=== PATIENT | female | born 1995 | race Caucasian/White ===

== ENCOUNTER 2018-11-22 11:10 | Emergency (ER) | payer BC ==
[2018-11-22 11:29] VITALS: BP 143/97
[2018-11-22] MEDS ORDERED: Sodium Chloride 0.9% 10 ML Syringe FLUSH PRN (11:34)
[2018-11-22] MEDS ORDERED: Ondansetron 4 MG Tab.DIS PO ONE (11:35)
[2018-11-22] MEDS ORDERED: Benztropine 1 MG Tab PO ONE (11:35)
[2018-11-22] MEDS ORDERED: Haloperidol Lactate 5 MG/ML SDV IM ONE (11:35)
[2018-11-22] MEDS ORDERED: Ketorolac 30 MG/ML SDV IVPUSH ONE (11:43)
--- NOTE | 2018-11-22 11:43 | EDM.PDOC ---
ED HPI GENERAL MEDICAL PROBLEM - General Chief Complaint: Headache Stated Complaint: SENT FROM [facility] Time Seen by Provider: 11/22/18 11:16 Source of Information: Reports: Patient History Limitations: Reports: No Limitations - History of Present Illness INITIAL COMMENTS - FREE TEXT/NARRATIVE: 23 y/o female presents to ER with cc headache that started yesterday morning. She reports she woke up with headache yesterday, she felt like she had a fever but didn't take it because she didn't have a thermometer. She states she took 3 aspirin but it didn't ease it. She reports she is have weakness, feeling dizzy, nausea and vomiting with it. She reports she has a history of what she is calling migraines although she has not be diagnosis with them. She reports last night her headache was the worse she has every had. She is not sure if it is due to all the vomiting she had. She reports having intermittent pain in her right eye that has since subsided. She reports this morning when she woke up she became weak and dizzy. She reports she has not eating in 24 hours. She denies any neck stiffness or pain. She is in no apparent distress at this time. She was seen at [facility] and set here for further evaluation and treatment. She currently rates her headache a 10/28. Onset Date: 11/21/18 Onset Time: 09:00 Duration: Getting Worse, Intermittent Location: Reports: Head Quality: Reports: Ache Severity: Mild Improves with: Reports: None Worsens with: Reports: None Associated Symptoms: Reports: Fever/Chills (reports fever but didnt' take anyting.), Nausea/Vomiting, Syncope, Weakness. Denies: Cough, Shortness of Breath Headache Pain Score (Numeric/FACES): 4 - Related Data Allergies Allergy/AdvReac Type Severity Reaction Status Date / Time No Known Allergies Allergy Verified 11/22/18 11:19 Home Meds: Home Meds Acetaminophen/Butalbital/Caff [Fioricet 325-50-40 MG] 1 each PO Q6HR PRN 4 Days #16 tab 11/22/18 [Rx] Ondansetron [Zofran ODT] 4 mg PO Q6H PRN 4 Days #16 tab.dis 11/22/18 [Rx] Past Medical History Neurological History: Reports: Migraines Psychiatric History: Reports: Anxiety, Other (See Below) - Past Surgical History HEENT Surgical History: Reports: Other (See Below) Other HEENT Surgeries/Procedures: wisdom teeth Social & Family History - Tobacco Use Smoking Status *Q: Never Smoker - Caffeine Use Caffeine Use: Reports: Soda - Recreational Drug Use Recreational Drug Use: No - Living Situation & Occupation Living situation: Reports: Single ED ROS GENERAL - Review of Systems Review Of Systems: See Below Constitutional: Reports: Fever. Denies: Chills HEENT: Reports: Glasses Respiratory: Reports: No Symptoms Cardiovascular: Reports: No Symptoms Endocrine: Reports: Fatigue GI/Abdominal: Reports: No Symptoms : Reports: No Symptoms Musculoskeletal: Denies: Neck Pain, Back Pain Skin: Reports: No Symptoms Neurological: Reports: Dizziness, Headache, Weakness. Denies: Confusion Psychiatric: Denies: No Symptoms Hematologic/Lymphatic: Reports: No Symptoms Immunologic: Reports: No Symptoms - Physical Exam Exam: See Below Exam Limited By: Uncooperative General Appearance: WD/WN, No Apparent Distress Eye Exam: Bilateral Eye: EOMI, PERRL Ears: Normal External Exam, Normal Canal, Hearing Grossly Normal, Normal TMs Nose: Normal Inspection, Normal Mucosa, No Blood Throat/Mouth: Normal Inspection, Normal Lips, Normal Teeth, Normal Gums, Normal Oropharynx, Normal Voice, No Airway Compromise Head Exam: Atraumatic, Normocephalic Neck: Normal Inspection, Supple, Non-Tender, Full Range of Motion Respiratory/Chest: No Respiratory Distress, Lungs Clear, Normal Breath Sounds, No Accessory Muscle Use, Chest Non-Tender Cardiovascular: Normal Peripheral Pulses, Regular Rate, Rhythm, No Edema, No Gallop, No JVD, No Murmur, No Rub Neuro Exam (Abbreviated): Alert, Oriented, CN II-XII Intact, Normal Cognition, Normal Gait, No Motor/Sensory Deficits Back Exam: Normal Inspection, Full Range of Motion Extremities: Normal Inspection, Normal Range of Motion, Non-Tender, No Pedal Edema, Normal Capillary Refill Psychiatric: Normal Affect, Normal Mood Skin Exam: Warm, Dry, Intact, Normal Color, No Rash Course - Vital Signs Last Recorded V/S: Last Vital Signs Temp 97.8 F 11/22/18 11:15 Pulse 62 11/22/18 11:15 Resp 16 11/22/18 11:15 BP 143/97 H 11/22/18 11:15 Pulse Ox 100 11/22/18 11:15 - Orders/Labs/Meds Orders: Active Orders 24 hr Category Date Time Status Sodium Chloride 0.9% [Normal Saline] 1,000 ml Med 11/22/18 11:45 Active IV ASDIRECTED Sodium Chloride 0.9% [Saline Flush] Med 11/22/18 11:34 Active 10 ml FLUSH ASDIRECTED PRN Saline Lock Insert [OM.PC] Routine Oth 11/22/18 11:34 Ordered Medication Orders Sodium Chloride (Normal Saline) 1,000 mls @ 999 mls/hr IV ASDIRECTED CATHLEEN Last Admin: 11/22/18 11:59 Dose: 999 mls/hr Sodium Chloride (Saline Flush) 10 ml FLUSH ASDIRECTED PRN PRN Reason: Keep Vein Open Last Admin: 11/22/18 12:01 Dose: 10 ml Meds: Medications Generic Name Dose Route Start Last Admin Trade Name Freq PRN Reason Stop Dose Admin Sodium Chloride 1,000 mls @ 999 mls/hr 11/22/18 11:45 11/22/18 11:59 Normal Saline IV 999 mls/hr ASDIRECTED CATHLEEN Administration Sodium Chloride 10 ml 11/22/18 11:34 11/22/18 12:01 Saline Flush FLUSH 10 ml ASDIRECTED PRN Administration Keep Vein Open Discontinued Medications Generic Name Dose Route Start Last Admin Trade Name Freq PRN Reason Stop Dose Admin Benztropine Mesylate 1 mg 11/22/18 11:35 11/22/18 12:36 Cogentin PO 11/22/18 11:36 1 mg ONETIME ONE Administration Haloperidol Lactate 5 mg 11/22/18 11:35 11/22/18 12:01 Haldol IM 11/22/18 11:36 5 mg ONETIME ONE Administration Ketorolac Tromethamine 30 mg 11/22/18 11:43 11/22/18 12:00 Toradol IVPUSH 11/22/18 11:44 30 mg ONETIME ONE Administration Ondansetron HCl 4 mg 11/22/18 11:47 11/22/18 11:59 Zofran IVPUSH 11/22/18 11:48 4 mg ONETIME STA Administration - Re-Assessments/Exams Free Text/Narrative Re-Assessment/Exam: 11/22/18 12:39 Patient reports she feels better after receiving Toradol, Haldol, Cogentin and Zofran. She reports her pain is now a 08/30. 11/22/18 12:42 She is tolerating P.O. challenge. 23 y/o female presented to ER with cc headache since yesterday. I do not feel she needs a CT at this time or further testing. Her influenza is negative. She received IVF, Toradol, Cogentin, Haldol and Zofran and her condition improved. I will discharge home with Zofran for nausea and Fioricet for headache. Instructed not to take Fioricet and drink, drive or operate machinery. Instructed to follow up with her PCP. Instructed to return to the ER for any new or acute worsening symptoms. She verbalized understanding and is comfortable with plan for discharge. She is stable at time of discharge. Departure - Departure Time of Disposition: 12:46 Disposition: Home, Self-Care 01 Condition: Good Clinical Impression: Migraine - Discharge Information Prescriptions: Acetaminophen/Butalbital/Caff [Fioricet 325-50-40 MG] 1 each PO Q6HR PRN 4 Days #16 tab PRN Reason: Headache Ondansetron [Zofran ODT] 4 mg PO Q6H PRN 4 Days #16 tab.dis PRN Reason: Nausea Instructions: Migraine Headache, Dehydration, Adult, [id number] Referrals: PCP,None [Primary Care Provider] - Forms: ED Department Discharge Additional Instructions: You have been diagnosis with dehydration and migraine headache. You have been prescribed Fioricet for headaches. Do not take this medication and drink, drive or operate machinery. Take Zofran as needed for nausea. Follow up with your PCP. Return to the ER for any new or acute worsening symptoms. - My Orders Last 24 Hours: My Active Orders 11/22/18 11:34 Sodium Chloride 0.9% [Saline Flush] 10 ml FLUSH ASDIRECTED PRN Saline Lock Insert [OM.PC] Routine 11/22/18 11:45 Sodium Chloride 0.9% [Normal Saline] 1,000 ml IV ASDIRECTED - Assessment/Plan Last 24 Hours: My Active Orders 11/22/18 11:34 Sodium Chloride 0.9% [Saline Flush] 10 ml FLUSH ASDIRECTED PRN Saline Lock Insert [OM.PC] Routine 11/22/18 11:45 Sodium Chloride 0.9% [Normal Saline] 1,000 ml IV ASDIRECTED
[2018-11-22] MEDS ORDERED: Sodium Chloride 0.9% 1,000 ML IV SCH (11:45)
[2018-11-22] MEDS ORDERED: Ondansetron 4 MG/2 ML SDV IVPUSH STA (11:47)
== END 2018-11-22 13:05 | disposition home or self-care (01) ==
LOC: JD.ED 11:10
DX: G43.909 Migraine, unspecified, not intractable, without status migrainosus (principal)
CPT/HCPCS: 87804; 96361; 96372; 96374; 96375; 99283; A9270; J1630; J1885; J2405; J7040; 99284